=== PATIENT | male | born 1965 | race Caucasian/White ===

== ENCOUNTER 2023-11-22 14:12 | Emergency (ER) | payer SELFPAY ==
[~2023-11-22] VITALS: Ht 172.7 cm; Wt 72.6 kg
[2023-11-22 14:15] VITALS: PULSE 95; RESP 20; TEMP 98.9; O2SAT 99
== END 2023-11-22 19:35 | disposition home or self-care (01) ==
LOC: ER 14:33
DX: M25.562 Pain in left knee (principal); M25.561 Pain in right knee; M13.862 Other specified arthritis, left knee; M13.861 Other specified arthritis, right knee
CPT/HCPCS: 99284